=== PATIENT | male | born 1950 | race Caucasian/White ===

== ENCOUNTER → 2019-11-25 09:32 | Outpatient (CLI) | payer MEDICARE, SELFPAY ==
--- NOTE | ~2019-11-25 | US_ITS ---
EXAMINATION: US thyroid DATE: 11/25/2019 09:53 INDICATION: Thyroid nodule. TECHNIQUE: Multiple ultrasound images of the thyroid were obtained. COMPARISON: None. FINDINGS: The right thyroid lobe measures 5.6 x 2.2 x 2.2 cm. The left thyroid lobe measures 5.3 x 2.4 x 2.0 c m. The thyroid is diffusely heterogeneous with increased vascularity, consistent with chronic lympho cytic (Ben) thyroiditis. There are multiple nodules in the thyroid. In the right thyroid lobe, there is a 1.2 cm solid, hypoechoic, objui-cmhv-soln nodule with smooth margin without echogenic foci (TI-RADS TR4). In the right lower lobe, there is a 1.2 cm solid, hypoechoic, iwhex-kaiu-bufy nodule with smooth margin without echogenic foci (TR4). In the left thyroid lobe, there is a 1.1 cm solid, h ypoechoic, uosau-fedp-ptcm nodule with smooth margin without echogenic foci (TR4). IMPRESSION: 1. Thyroid nodules. Thyroid ultrasound is recommended in one year. 2. Heterogeneous, hypervascular thyroid, consistent with chronic lymphocytic (Ben) thyroiditis. Reviewed, dictated and finalized at location A. IMPRESSION: 1. Thyroid nodules. Thyroid ultrasound is recommended in one year. 2. Heterogeneous, hypervascular thyroid, consistent with chronic lymphocytic (H ashimoto) thyroiditis.
== END ==
PROVIDERS: PCP Internal Medicine; Visit Provider Internal Medicine Endocrinology, Diabetes & Metabolism
DX: E04.1 Nontoxic single thyroid nodule (principal)
CPT/HCPCS: 76536

== ENCOUNTER → 2020-11-01 15:24 | Outpatient (REF) | payer MEDICARE, SELFPAY | LOC: ANHLAB 15:24 | PROVIDERS: PCP Internal Medicine; Visit Provider Nurse Practitioner | DX: C44.219 Basal cell carcinoma of skin of left ear and external auricular canal (principal) | CPT/HCPCS: 88305 ==

== ENCOUNTER → 2021-01-24 09:20 | Outpatient (REF) | payer MEDICARE, SELFPAY | LOC: ANHLAB 09:20 | PROVIDERS: PCP Internal Medicine; Visit Provider Nurse Practitioner | DX: C44.111 Basal cell carcinoma of skin of unspecified eyelid, including canthus (principal) | CPT/HCPCS: 88305; 88331 ==